=== PATIENT | female | born 1965 | race Caucasian/White ===

== ENCOUNTER 2017-07-15 12:22 | Emergency (ER) | payer OTHER ==
[2017-07-15 12:36] VITALS: RESP 16
--- NOTE | 2017-07-15 13:04 | EDPHY ---
H & P Time Seen by Provider: 07/15/17 12:40 HPI/ROS: CHIEF COMPLAINT: Short of breath and lower chest pain HISTORY OF PRESENT ILLNESS: This 52-year-old woman has history of breast cancer with metastases. She has been on chemotherapy for the last 2 and half years including her last 1 was on July 07. She presents with 3-4 days of increased shortness of breath and pain in both sides of her lower chest and the back which she takes a deep breath. Symptoms are mild to moderate and feels like a "pulling on both sides "of her lower chest when she takes deep breath. She developed a nonproductive cough today, no leg swelling or hemoptysis. REVIEW OF SYSTEMS: Eye: no change in vision ENT: no sore throat Cardiac: HPI no syncope Pulmonary: HPI Abdomen: no vomiting, diarrhea, abdominal pain Musculoskeletal: No fall injury or trauma, no leg swelling. Skin: no rash Neuro: no headache Constitutional: no fever : Slight urinary frequency and dysuria for 1 day A comprehensive 10 point review of systems is otherwise negative aside from elements mentioned in the history of present illness. PAST MEDICAL HISTORY: Breast cancer with metastases Social history: General Appearance: Alert and conversant, cooperative. Eyes: No scleral icterus. ENT, Mouth: Normal mucous membranes. Respiratory: Normal respiratory effort, breath sounds equal, lungs are clear to auscultation. no wheezing or rales. Cardiovascular: Regular rate and rhythm. Gastrointestinal: Abdomen is soft and non tender. No Lal sign. Neurological: Alert and oriented x3. Normally conversant. Face symmetric, normal movement and sensation in all extremities. Skin: Warm and dry, no rashes. Musculoskeletal: No calf tenderness. Psychiatric: Not agitated. Emergency Department course/MDM: Suspicion is moderately high for pulmonary embolism given history of cancer, typical symptoms, tachycardia. Discussed proceeding directly to CT without D- dimer with the patient and consented. 1405: CT per Dr. Hassan shows metastatic nodules, no pulmonary embolism, small effusions, right middle lobe pneumonitis, ribs and vertebral metastases but without vertebral compression fracture. Results discussed with the patient. Her symptoms are better when she eats and drinks. I think this slightly elevated lipase does not clinically represent pancreatitis. Discussed symptomatic treatment and discharge with outpatient follow-up, the patient states she is comfortable with this plan. 1510: Ruddy Ritter, earnestine and f/u discussed, agrees. Urine dip negative, UTI considered unlikely. Smoking Status: Never smoked Constitutional: Initial Vital Signs Temperature (C) 37.1 C 07/15/17 12:29 Heart Rate 100 07/15/17 12:29 Respiratory Rate 16 07/15/17 12:29 Blood Pressure 105/71 07/15/17 12:29 O2 Sat (%) 97 07/15/17 12:29 O2 Delivery Mode Room Air Allergies/Adverse Reactions: peanut Allergy (Verified 11/12/14 15:57) Sulfa (Sulfonamide Antibiotics) Allergy (Verified 11/12/14 15:57) terconazole [From Terazol 3] Allergy (Verified 11/12/14 15:57) tree nut Allergy (Verified 11/12/14 15:57) Home Medications: Medication Instructions Recorded Lucretia Allergy 07/15/17 CeleBREX 07/15/17 Percocet 5/325 (*) 07/15/17 Topamax 07/15/17 Vicodin Es 7.5-300 mg Tablet 07/15/17 oxyCODONE IR 07/15/17 Medical Decision Making - Diagnostics EKG Interpretation: 12-lead EKG interpreted by me; official reading is in trace master. My interpretation is sinus rhythm rate 93 no ischemic changes. Imaging Results: Imaging Impressions Chest/Thorax CTA 07/15/17 13:13 Impression: 1. No definite pulmonary thromboemboli. 2. Multiple osseous metastases including the sternum, manubrium, thoracic spine , and ribs without definite thoracic compression fractures. 3. Minimal bilateral pleural effusions without pneumothorax. 4. Multiple pulmonary metastases and mediastinal metastasis. 5. Probable postradiation pleuroparenchymal fibrosis in the right middle lobe. Recommendation: Consider MRI of the thoracic spine if there is continued clinical concern. Findings discussed with Emergency Department physician, Jesus Ornelas, at 1407 hours, 07/15/2017. Final report concurs with initial preliminary interpretation. Differential Diagnosis: Differential considered including but not limited to pneumonia, pneumothorax, ACS, vertebral compression fracture, pulmonary embolism, pancreatitis, hepatitis , gallbladder disease. - Data Points Laboratory Results: Laboratory Results 07/15/17 12:50 07/15/17 12:50 07/15/17 07/15/17 07/15/17 13:03 12:50 12:50 WBC 13.01 10^3/uL H 10^3/uL (3.80-9.50) RBC 2.46 10^6/uL L 10^6/uL (4.18-5.33) Hgb 8.6 g/dL L g/dL (12.6-16.3) POC Hgb 8.2 gm/dL L gm/dL (12.6-16.3) Hct 26.4 % L % (38.0-47.0) POC Hct 24 % L % (38-47) MCV 107.3 fL H fL (81.5-99.8) MCH 35.0 pg H pg (27.9-34.1) MCHC 32.6 g/dL g/dL (32.4-36.7) RDW 16.0 % H % (11.5-15.2) Plt Count 171 10^3/uL 10^3/uL (150-400) MPV 10.5 fL fL (8.7-11.7) Neut % (Auto) Not Reported Lymph % (Auto) Not Reported [place] % (Auto) Not Reported Eos % (Auto) Not Reported Baso % (Auto) Not Reported Nucleat RBC Rel Count 1.7 % H % (0.0-0.2) Absolute Neuts (auto) Not Reported Absolute Lymphs (auto) Not Reported Absolute Monos (auto) Not Reported Absolute Eos (auto) Not Reported Absolute Basos (auto) Not Reported Absolute Nucleated RBC 0.22 10^3/uL H 10^3/uL (0-0.01) Immature Gran % Not Reported Seg Neutrophils % 51 % % Band Neutrophils % 20 % % Lymphocytes % 14 % % Monocytes % 8 % % Basophils % 3 % % Metamyelocytes % 3 % % Myelocytes % 1 % % Immature Gran # Not Reported Absolute Seg Neuts 6.64 10^/uL H 10^/uL (1.70-6.50) Absolute Band Neuts 2.60 10^3/uL H 10^3/uL (0.00-0.70) Absolute Lymphocytes 1.82 10^3/uL 10^3/uL (1.00-3.00) Absolute Monocytes 1.04 10^3/uL H 10^3/uL (0.30-0.80) Absolute Basophils 0.39 10^3/uL H 10^3/uL (0.02-0.10) Absolute Metamyelocyte 0.39 10^3/mL H 10^3/mL (0.00-0.00) Absolute Myelocytes 0.13 10^3/mL H 10^3/mL (0.00-0.00) Nucleated RBCs 5 /100 WBC H /100 WBC (0-0) Platelet Estimate ADEQUATE (ADEQ) Smear Review By Pending POC Sodium 140 mEq/L mEq/L (134-144) Sodium 139 mEq/L mEq/L (134-144) POC Potassium 3.6 mEq/L mEq/L (3.3-5.0) Potassium 3.6 mEq/L mEq/L (3.5-5.2) POC Chloride 105 mEq/L mEq/L (97-110) Chloride 104 mEq/L mEq/L (97-110) Carbon Dioxide 24 mEq/l mEq/l (22-31) Anion Gap 11 mEq/L mEq/L (8-16) POC BUN 11 mg/dL mg/dL (7-23) BUN 12 mg/dL mg/dL (7-23) Creatinine 0.7 mg/dL mg/dL (0.6-1.0) POC Creatinine 0.7 mg/dL mg/dL (0.6-1.0) Estimated GFR > 60 Glucose 97 mg/dL mg/dL (70-100) POC Glucose 96 mg/dL mg/dL (70-100) Calcium 8.9 mg/dL mg/dL (8.5-10.4) Total Bilirubin 0.4 mg/dL mg/dL (0.1-1.4) Conjugated Bilirubin 0.4 mg/dL mg/dL (0.0-0.5) Unconjugated Bilirubin 0.0 mg/dL mg/dL (0.0-1.1) AST 47 IU/L H IU/L (14-46) ALT 38 IU/L IU/L (9-52) Alkaline Phosphatase 93 IU/L IU/L (38-126) Troponin I < 0.012 ng/mL ng/mL (0.000-0.034) Total Protein 6.3 g/dL g/dL (6.3-8.2) Albumin 3.5 g/dL g/dL (3.5-5.0) Lipase 672 IU/L H IU/L (23-300) Point of Care Test Results: 07/15/17 13:03 POC Sodium 140 POC Potassium 3.6 POC Chloride 105 POC BUN 11 POC Creatinine 0.7 POC Glucose 96 Departure - Departure Disposition: Home, Routine, Self-Care Clinical Impression: lower chest pain posterior Condition: Good Instructions: Chest Pain (ED) Additional Instructions: No blood clot or compression fracture on CT scan. Referrals: Danielle Tucker MD [Primary Care Provider] - As per Instructions Hussein Ritter MD [Medical Doctor] - As per Instructions
[2017-07-15 13:14] LABS: ABSOLUTE NRBC COUNT 0.22 10^3/uL (0-0.01); ADD DIFF? YES; ADD MORPH? YES; ADD SCAN? YES; ATYPICAL LYMPHOCYTE FLAG 0 (0-99); FRAGMENT RBC FLAG 10 (0-99); HEMATOCRIT 26.4 % (38.0-47.0); HEMOGLOBIN 8.6 g/dL (12.6-16.3); LIPEMIA HEMOLYSIS FLAG 80 (0-99); MEAN CELL HEMOGLOBIN CONCENTR. 32.6 g/dL (32.4-36.7); MEAN CELL VOLUME 107.3 fL (81.5-99.8); MEAN PLATELET VOLUME 10.5 fL (8.7-11.7); PLATELET CLUMPS FLAG 0 (0-99); PLATELET COUNT 171 10^3/uL (150-400); RED BLOOD CELL COUNT 2.46 10^6/uL (4.18-5.33)
[2017-07-15] MEDS ORDERED: IOPAMIDOL (ISOVUE 370) 100 ML BTL IV ONE (13:15)
[2017-07-15 13:16] LABS: LEFT SHIFT FLG 300 (0-99); NRBC-AUTO% 1.7 % (0.0-0.2)
[2017-07-15 13:20] LABS: ALANINE AMINOTRANSFERASE 38 IU/L (9-52); ALBUMIN 3.5 g/dL (3.5-5.0); ALKALINE PHOSPHATASE 93 IU/L (38-126); ANION GAP 11 mEq/L (8-16); ASPARTATE AMINOTRANSFERASE 47 IU/L (14-46); BILIRUBIN,TOTAL 0.4 mg/dL (0.1-1.4); BILIRUBIN-CONJUGATED 0.4 mg/dL (0.0-0.5); CALCIUM 8.9 mg/dL (8.5-10.4); CARBON DIOXIDE 24 mEq/l (22-31); CHLORIDE 104 mEq/L (97-110); CREATININE 0.7 mg/dL (0.6-1.0); GLOMERULAR FILTRATION RATE > 60; GLUCOSE 97 mg/dL (70-100); POTASSIUM 3.6 mEq/L (3.5-5.2); SODIUM 139 mEq/L (134-144); TOTAL PROTEIN 6.3 g/dL (6.3-8.2)
[2017-07-15 13:31] LABS: TROPONIN I < 0.012 ng/mL (0.000-0.034)
--- NOTE | 2017-07-15 14:06 | CPEKG ---
Heart Rate: 93 RR Interval: 645 P-R Interval: 172 QRSD Interval: 72 QT Interval: 384 QTC Interval: 478 P [place]: 78 QRS [place]: 65 T Wave [place]: 45 EKG Severity - NORMAL ECG - EKG Impression: SINUS RHYTHM Electronically Signed By: Jesus Ornelas 15-Jul-2017 15:04:20
[2017-07-15 14:56] LABS: PLATELET ESTIMATE ADEQUATE (ADEQ)
[2017-07-15 15:15] VITALS: BP 117/68; PULSE 94; TEMP 98.4; O2SAT 95
== END 2017-07-15 15:16 | disposition home or self-care (01) ==
DX: R07.9 Chest pain, unspecified (principal); Z85.3 Personal history of malignant neoplasm of breast; Z91.010 Allergy to peanuts
CPT/HCPCS: 82947-QW; Q9967

== ENCOUNTER 2017-07-28 10:17 | Outpatient (CLI) | payer OTHER ==
[2017-07-28] MEDS ORDERED: ACETAMINOPHEN 325 MG TAB PO ONE (11:45)
[2017-07-28] MEDS ORDERED: diphenhydrAMINE 25 MG CAP PO ONE (11:45)
== END 2017-07-28 15:00 | disposition home or self-care (01) ==
LOC: FOBOP 10:17
PROVIDERS: ATTEND Internal Medicine Hematology & Oncology
PROC: 30243N1 Transfusion of Nonautologous Red Blood Cells into Central Vein, Percutaneous Approach (ICD-10-PCS; principal; 2017-07-28)
DX: C50.919 Malignant neoplasm of unspecified site of unspecified female breast (principal)
CPT/HCPCS: 36430; P9016; J1642

== ENCOUNTER → 2017-07-29 | Outpatient (CLI) | payer OTHER ==
[~2017-07-29] MED LIST: LIDOCAINE 1% 300 MG/30 ML SDV ONE; THROMBIN (BOVINE) 5,000 UNIT VIAL TP ONE
== END ==
LOC: FIMAGING 09:06
PROVIDERS: ATTEND Internal Medicine Hematology & Oncology
PROC: 0HBT3ZX Excision of Right Breast, Percutaneous Approach, Diagnostic (ICD-10-PCS; principal; 2017-07-29)
DX: C50.411 Malignant neoplasm of upper-outer quadrant of right female breast (principal)

== ENCOUNTER → 2017-08-15 | Outpatient (CLI) | payer OTHER | LOC: FIMAGING 17:12 | PROVIDERS: ATTEND Nurse Practitioner | DX: C79.51 Secondary malignant neoplasm of bone (principal); C50.411 Malignant neoplasm of upper-outer quadrant of right female breast; M51.37 Other intervertebral disc degeneration, lumbosacral region; M46.97 Unspecified inflammatory spondylopathy, lumbosacral region; M48.07 Spinal stenosis, lumbosacral region; M46.96 Unspecified inflammatory spondylopathy, lumbar region; M48.061 Spinal stenosis, lumbar region without neurogenic claudication; D64.81 Anemia due to antineoplastic chemotherapy ==

== ENCOUNTER 2017-08-17 10:44 | Outpatient (CLI) | payer OTHER ==
[2017-08-17] MEDS ORDERED: FUROSEMIDE 20 MG/2 ML VIAL IVP ONE (11:30)
== END 2017-08-17 16:18 | disposition home or self-care (01) ==
LOC: FOBOP 10:44
PROVIDERS: ATTEND Internal Medicine Hematology & Oncology
PROC: 30233N1 Transfusion of Nonautologous Red Blood Cells into Peripheral Vein, Percutaneous Approach (ICD-10-PCS; principal; 2017-08-17)
DX: D64.81 Anemia due to antineoplastic chemotherapy (principal); C50.919 Malignant neoplasm of unspecified site of unspecified female breast; Z88.2 Allergy status to sulfonamides
CPT/HCPCS: 36430; P9016; J1940

== ENCOUNTER → 2017-08-20 | Outpatient (CLI) | payer OTHER ==
[~2017-08-20] MED LIST changes: +GADOBUTROL 10 ML VIAL IVP ONE; -LIDOCAINE 1% 300 MG/30 ML SDV ONE; -THROMBIN (BOVINE) 5,000 UNIT VIAL TP ONE
== END ==
LOC: FIMAGING 14:57
PROVIDERS: ATTEND Nurse Practitioner
DX: G93.9 Disorder of brain, unspecified (principal); G95.19 Other vascular myelopathies; R93.7 Abnormal findings on diagnostic imaging of other parts of musculoskeletal system; H70.92 Unspecified mastoiditis, left ear; J90 Pleural effusion, not elsewhere classified; C50.411 Malignant neoplasm of upper-outer quadrant of right female breast
CPT/HCPCS: A9585

== ENCOUNTER 2017-09-08 13:51 | Inpatient (IN) | payer OTHER ==
[2017-09-08] MEDS ORDERED: NS 500 ML IV ONE (14:04)
[2017-09-08] MEDS ORDERED: IPRATROPIUM/ALBUTEROL 3 ML DEYVIAL IH ONE (14:04)
--- NOTE | 2017-09-08 14:10 | EDPHY ---
H & P Stated Complaint: SOB x 2 days, cpap Time Seen by Provider: 09/08/17 13:57 HPI/ROS: CHIEF COMPLAINT: Shortness of breath HISTORY OF PRESENT ILLNESS: Patient is a 52-year-old female with a history of breast cancer with metastasis to lung, brain and spine. She is brought to the emergency department by EMS complaining of shortness of breath. When EMS arrived to her house she was satting 80%. They placed on a non-rebreather and she was satting 85%. They placed her on CPAP and she sats 93%. states over the last 3 days she has developed increasing shortness of breath gradually. No chest pain. No fever or cough. 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 No leg pain or swelling. She was seen here 2 months ago and had a CT angiogram at that time that showed metastasis, small effusions but no PE. REVIEW OF SYSTEMS: Constitutional: denies: chills, fever, recent illness, recent injury EENTM: denies: blurred vision, double vision, nose congestion Respiratory: See HPI Cardiac: denies: chest pain, irregular heart rate, lightheadedness, palpitations Gastrointestinal/Abdominal: denies: abdominal pain, diarrhea, nausea, vomiting, blood streaked stools Genitourinary: denies: dysuria, frequency, hematuria, pain Musculoskeletal: denies: joint pain, muscle pain Skin: denies: lesions, rash, jaundice, bruising Neurological: denies: headache, numbness, paresthesia, tingling, dizziness, weakness Hematologic/Lymphatic: denies: blood clots, easy bleeding, easy bruising Immunologic/allergic: denies: HIV/AIDS, transplant EXAM: GENERAL: Well-appearing, well-nourished and in no acute distress. HEAD: Atraumatic, normocephalic. EYES: Pupils equal round and reactive to light, extraocular movements intact, sclera anicteric, conjunctiva are normal. ENT: TMs normal, nares patent, oropharynx clear without exudates. Moist mucous membranes. NECK: Normal range of motion, supple without lymphadenopathy or JVD. LUNGS: Coarse breath sounds throughout, no wheezing HEART: Regular rate and rhythm without murmurs, rubs or gallops. ABDOMEN: Soft, nontender, normoactive bowel sounds. No guarding, no rebound. No masses appreciated. BACK: No CVA tenderness, no spinal tenderness, step-offs or deformities EXTREMITIES: Normal range of motion, no pitting or edema. No clubbing or cyanosis. NEUROLOGICAL: Cranial nerves II through XII grossly intact. Normal speech, normal gait. 5/5 strength, normal movement in all extremities, normal sensation PSYCH: Normal mood, normal affect. SKIN: Warm, dry, normal turgor, no visible rashes or lesions. Source: Patient Exam Limitations: No limitations - Personal History Current Tetanus/Diphtheria Vaccine: Unsure Current Tetanus Diphtheria and Acellular Pertussis (TDAP): Unsure - Medical/Surgical History Hx Asthma: No Hx Chronic Respiratory Disease: No Hx Diabetes: No Hx Cardiac Disease: No Hx Renal Disease: No Hx Cirrhosis: No Hx Alcoholism: No Hx HIV/AIDS: No Hx Splenectomy or Spleen Trauma: No Other PMH: BREAST CA WITH METS TO BONE - Family History Significant Family History: No pertinent family hx - Social History Smoking Status: Never smoked Alcohol Use: Sober Drug Use: None Constitutional: Initial Vital Signs Temperature (C) 36.7 C 09/08/17 14:00 Heart Rate 129 H 09/08/17 14:00 Respiratory Rate 17 09/08/17 14:00 Blood Pressure 132/82 H 09/08/17 14:00 O2 Sat (%) 94 09/08/17 14:00 O2 Delivery Mode Oxymizer O2 (L/minute) 10 Allergies/Adverse Reactions: bacitracin Allergy (Verified 08/17/17 11:15) peanut Allergy (Verified 11/12/14 15:57) Sulfa (Sulfonamide Antibiotics) Allergy (Verified 11/12/14 15:57) terconazole [From Terazol 3] Allergy (Verified 11/12/14 15:57) tree nut Allergy (Verified 11/12/14 15:57) Home Medications: Medication Instructions Recorded Albuterol [Ventolin Hfa Inhaler] 2 puffs IH Q6H PRN 09/08/17 Dexamethasone [Decadron 4 MG (*)] 4 mg PO BID 09/08/17 Gabapentin [Neurontin 100 MG (*)] 300 mg PO HS 09/08/17 LORazepam [Ativan (*)] 0.5 mg PO HS PRN 09/08/17 Loratadine [Claritin] 10 mg PO HS 09/08/17 fentaNYL [Duragesic 100 MCG Patch 100 mcg TD Q72H 09/08/17 (*)] oxyCODONE HCL [Oxycontin] 60 mg PO Q8H 09/08/17 Medical Decision Making - Diagnostics EKG Interpretation: An EKG obtained and was read and documented in trace view. Please see trace view for full reading and report. Sinus tachycardia, similar to previous Imaging: Discussed imaging studies w/ hogshead mat assembler Radiologist ED Course/Re-evaluation: 2:55 p.m. I discussed the case with Dr. Clarke who will admit to the medical service. He agrees with [facility]. The patient meets criteria for severe sepsis but not septic shock. Her blood pressure is stable. Differential Diagnosis: Partial list of the Differential diagnosis considered include but were not limited to; pneumonia, PE, reactive airway disease, pleural effusion and although unlikely based on the history and physical exam, I also considered acute coronary disease, dissection. Critical Care Time: Critical care time spent by me, Dr. Babcock exclusive with this patient was 35 minutes, exclusive of the PA time exclusive of procedures. The organ system that was at risk was pulmonary and I gave IV fluids, antibiotics, consultation and admission to prevent worsening of the patient's condition - Data Points Laboratory Results: Laboratory Results 09/08/17 14:20 09/08/17 14:20 Medications Given: Acetaminophen (Tylenol) 650 mg PO Q4HRS PRN PRN Reason: Pain, Mild/Fever, Can Take PO Stop: 03/07/18 16:02 Last Admin: 09/08/17 19:48 Dose: 650 mg Albuterol/Ipratropium (Duoneb) 3 ml IH QID BRENDA Stop: 03/07/18 20:59 Last Admin: 09/09/17 11:54 Dose: Not Given Cetirizine HCl (Zyrtec) 10 mg PO HS BRENDA Stop: 03/07/18 20:59 Last Admin: 09/08/17 21:00 Dose: 10 mg Dexamethasone (Decadron) 4 mg PO TID BRENDA Stop: 03/07/18 21:59 Last Admin: 09/09/17 08:08 Dose: 4 mg Enoxaparin Sodium (Lovenox) 40 mg SC DAILY BRENDA Stop: 03/08/18 08:59 Last Admin: 09/09/17 07:01 Dose: Not Given Gabapentin (Neurontin) 300 mg PO HS BRENDA Stop: 03/07/18 20:59 Last Admin: 09/08/17 21:25 Dose: 300 mg Guaifenesin (Mucinex) 1,200 mg PO BID BRENDA Stop: 03/07/18 20:59 Last Admin: 09/09/17 08:08 Dose: 1,200 mg Sodium Chloride (Ns) 1,000 mls @ 125 mls/hr IV CONT BRENDA Stop: 03/07/18 16:14 Last Admin: 09/09/17 02:00 Dose: 1,000 mls Piperacillin/Tazobactam/Dextrose (Zosyn (Premix)) 100 mls @ 200 mls/hr IV Q6HRS BRENDA PRN Reason: Protocol Stop: 10/08/17 17:59 Last Admin: 09/09/17 12:19 Dose: 100 mls Oxycodone HCl (Oxycontin) 60 mg PO Q8H BRENDA Stop: 09/18/17 15:59 Last Admin: 09/09/17 08:08 Dose: 60 mg Oxycodone HCl (Oxycodone Ir) 15 mg PO Q4HRS PRN PRN Reason: Pain, Severe Able to Take PO Stop: 09/18/17 16:56 Last Admin: 09/08/17 17:08 Dose: 15 mg Discontinued Medications Albuterol/Ipratropium (Duoneb) 3 ml IH EDNOW ONE Stop: 09/08/17 14:05 Last Admin: 09/08/17 14:45 Dose: 3 ml Sodium Chloride (Ns) 500 mls @ 1,000 mls/hr IV EDNOW ONE PRN Reason: Protocol Stop: 09/08/17 14:33 Last Admin: 09/08/17 14:44 Dose: 500 mls Levofloxacin/Dextrose (Levaquin 750 Mg (Premix)) 150 mls @ 100 mls/hr IV EDNOW ONE PRN Reason: Protocol Stop: 09/08/17 16:20 Last Admin: 09/08/17 14:56 Dose: 150 mls Sodium Chloride (Ns) 1,700 mls @ 3,400 mls/hr 30 ml/kg infuse over 30 min ( 1700 ml) IV EDNOW ONE PRN Reason: Protocol Stop: 09/08/17 15:20 Last Admin: 09/08/17 14:56 Dose: 1,700 mls Azithromycin 500 mg/ Dextrose 255 mls @ 255 mls/hr IV DAILY BRENDA PRN Reason: Protocol Stop: 10/09/17 08:59 Last Admin: 09/09/17 09:12 Dose: 255 mls Departure - Departure Disposition: [facility] Inpatient Acute Clinical Impression: Pleural effusion Pneumonia Qualifiers: Pneumonia type: due to unspecified organism Laterality: right Lung location: lower lobe of lung Qualified Code(s): J18.1 - Lobar pneumonia, unspecified organism Condition: Critical
--- NOTE | 2017-09-08 14:22 | CPEKG ---
Heart Rate: 127 RR Interval: 472 P-R Interval: 412 QRSD Interval: 60 QT Interval: 304 QTC Interval: 442 P [place]: 0 QRS [place]: 89 T Wave [place]: 13 EKG Severity - ABNORMAL ECG - EKG Impression: SINUS TACHYCARDIA EKG Impression: FIRST DEGREE AV BLOCK EKG Impression: ANTHONY, CONSIDER BIATRIAL ABNORMALITIES Electronically Signed By: Martin Babcock 08-Sep-2017 14:29:53
[2017-09-08 14:36] LABS: % IMMATURE GRANULYOCYTES 0.7 % (0.0-1.1); ABSOLUTE IMMATURE GRANULOCYTES 0.04 10^3/uL (0.00-0.10); ADD DIFF? NO; ADD SCAN? YES; ATYPICAL LYMPHOCYTE FLAG 20 (0-99); FRAGMENT RBC FLAG 80 (0-99); HEMATOCRIT 36.4 % (38.0-47.0); HEMOGLOBIN 11.7 g/dL (12.6-16.3); LIPEMIA HEMOLYSIS FLAG 80 (0-99); MEAN CELL HEMOGLOBIN 30.5 pg (27.9-34.1); MEAN CELL HEMOGLOBIN CONCENTR. 32.1 g/dL (32.4-36.7); MEAN PLATELET VOLUME 10.5 fL (8.7-11.7); PLATELET CLUMPS FLAG 10 (0-99); PLATELET COUNT 147 10^3/uL (150-400); RED BLOOD CELL COUNT 3.83 10^6/uL (4.18-5.33); RED CELL DISTRIBUTION WIDTH 18.9 % (11.5-15.2)
[2017-09-08 14:37] LABS: ADD MORPH? NO; LEFT SHIFT FLG 170 (0-99); NRBC-AUTO% 1.7 % (0.0-0.2)
[2017-09-08 14:44] LABS: INR 1.09 (0.83-1.16)
[2017-09-08 14:45] LABS: APTT 46.9 SEC (23.0-38.0)
[2017-09-08] MEDS ORDERED: NS 1,700 ML IV ONE (14:51)
[2017-09-08 15:03] LABS: CALCIUM 8.2 mg/dL (8.5-10.4); CARBON DIOXIDE 23 mEq/l (22-31); CHLORIDE 95 mEq/L (97-110); CREATININE 0.8 mg/dL (0.6-1.0); GLOMERULAR FILTRATION RATE > 60; GLUCOSE 137 mg/dL (70-100); SODIUM 135 mEq/L (134-144)
[2017-09-08] MEDS ORDERED: IOPAMIDOL (ISOVUE 370) 100 ML BTL IV ONE (15:06)
[2017-09-08 15:07] LABS: ANION GAP 17 mEq/L (8-16); POTASSIUM 4.9 mEq/L (3.5-5.2)
[2017-09-08 15:26] LABS: SCAN POSITIVE
[2017-09-08 15:27] LABS: LACGHOST ORDER
[2017-09-08 15:31] LABS: MACROCYTES 1+; MICROCYTES 1+; PLATELET ESTIMATE DECREASED (ADEQ); POLYCHROMASIA 1+
[2017-09-08 15:51] LABS: TROPONIN I 0.035 ng/mL (0.000-0.034)
[2017-09-08] MEDS ORDERED: ALBUTEROL 200 PUFFS/18 GM MDI IH PRN (16:00)
[2017-09-08] MEDS ORDERED: ONDANSETRON DISINTEGRATING 4 MG TAB PO PRN (16:03)
[2017-09-08] MEDS ORDERED: ONDANSETRON 4 MG/2 ML VIAL IVP PRN (16:03)
[2017-09-08] MEDS ORDERED: ACETAMINOPHEN 325 MG TAB PO PRN (16:03)
[2017-09-08] MEDS ORDERED: NS 1,000 ML IV SCH (16:15)
[2017-09-08] MEDS ORDERED: oxyCODONE IR 15 MG TAB PO PRN (16:57)
--- NOTE | 2017-09-08 17:02 | GHP ---
[f rep st] HISTORY AND PHYSICAL DATE OF ADMISSION: 09/08/2017 CHIEF COMPLAINT: Shortness of breath. HISTORY OF PRESENT ILLNESS: This is a 52-year-old female with metastatic breast cancer who received chemotherapy 2 weeks ago with Gemzar and Taxol, presents with shortness of breath. She was brought i n by her . She has been coughing, had difficulty producing sputum. She has not had any fever s at home. She does feel somewhat short of breath. She is not having any chest pain. PAST MEDICAL/SURGICAL HISTORY: 1. 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 2. Right lymph node dissection. 3. Followed by Dr. Ritter. MEDICATIONS: Please see medication reconciliation. ALLERGIES: Bacitracin, peanuts, sulfa, terconazole, tree nut. FAMILY HISTORY: Reviewed and noncontributory. SOCIAL HISTORY: She is accompanied by her daughter as well as her . REVIEW OF SYSTEMS: A 10-point review of systems is conducted and is negative except per HPI. PHYSICAL EXAM: VITAL SIGNS: Blood pressure 124/64, heart rate 112, respiration rate 24, saturating 94% on 10 L Oxymizer, temperature 36.7. GENERAL: The patient is a very pleasant female who appears somewhat dyspneic. HEENT: Shows her to be normocephalic, atraumatic. CARDIOVASCULAR: Shows regula r rate and rhythm. No murmurs, rubs, or gallops. PULMONARY: Shows her to have diffuse rhonchi bila terally. ABDOMEN: Soft, nontender, nondistended. SKIN: Shows no rash. : No Sellers. NEUROLOGIC : Shows her to be alert and oriented x3. She is mildly confused. Her answers some question s for her. PSYCHIATRIC: Shows her to have normal mood and affect. LABS: White count is 5.9, hemoglobin 11, platelets are 147. INR is 1.0. Lactate is 3.0. Troponin 0.035. Bicarb 23, anion gap is 17. DATA: 1. I discussed this with Dr. Babcock. 2. I personally viewed and interpreted her chest x-ray. This shows a right lower lobe infiltrate. This is read as a new infiltrate. 3. EKG, which I personally viewed and interpreted, shows sinus tachycardia. There was nothing acute ly ischemic. IMPRESSION AND PLAN: This is a 52-year-old female with metastatic breast cancer, received chemothera py 2 weeks ago, presents with pneumonia. 1. Sepsis due to pneumonia: She has received appropriate fluid bolus. Repeat lactate is pending. She will be placed on broad-spectrum antibiotics with Zosyn and azithromycin. We will triage her to the step-down unit given the degree of respiratory failure. We will send sputum culture, respiratory viral panel. CT scan is pending. 2. Acute respiratory failure due to the above: Give her nebulizers, broad-spectrum antibiotics, tri age her to the step-down unit. Write her for Mucinex. We will follow very closely. 3. Breast cancer with leptomeningeal disease: It sounds as though they recently transitioned to [facility]. She follows with Dr. Ritter. I will ask my covering colleague to let Oncology know of her admission tomorrow. 4. Code status: She and her said that they have a Medical Orders for Scope of Treatment for m, which states that she would not want to be intubated or resuscitated. I think that this is approp riate given her underlying disease. 5. Venous thromboembolism risk: Moderate, I will give her Lovenox. /[id number]/MODL
--- NOTE | 2017-09-08 17:04 | ASMTCMCOM ---
CM Note CM Note Notes: Patient admitted through the ER on 09/08/17. Received VM from Kelly at [facility] . Patient is current with PC through [facility] and they are available as needed. [facility]: . I have contacted Kelly and informed her of patient's admission to [facility] to follow with D/C planning prn Date Signed: 09/08/2017 05:03 PM Electronically Signed By:Katy Sanchez RN
[2017-09-08] MEDS: oxyCODONE CR 30 MG TAB PO SCH (17:08)
[2017-09-08] MEDS: PIPERACILLIN/TAZO 4.5 GM/DEX 100 ML IV SCH (17:11)
[2017-09-08] MEDS ORDERED: DEXAMETHASONE 4 MG TAB PO SCH (21:00)
[2017-09-08] MEDS: CETIRIZINE 10 MG TAB PO SCH (21:00)
[2017-09-08] MEDS: DEXAMETHASONE 4 MG TAB PO SCH (21:25)
[2017-09-08] MEDS: guaiFENesin 600 MG TAB.ER PO SCH (21:25)
[2017-09-08] MEDS: GABAPENTIN 300 MG CAP PO SCH (21:25)
[2017-09-08] MEDS: IPRATROPIUM/ALBUTEROL 3 ML DEYVIAL IH SCH (21:42)
[2017-09-09] MEDS: IPRATROPIUM/ALBUTEROL 3 ML DEYVIAL IH SCH ×4 (05:48→21:34)
[2017-09-09] MEDS: PIPERACILLIN/TAZO 4.5 GM/DEX 100 ML IV SCH ×4 (05:57→17:52)
[2017-09-09 06:20] LABS: % IMMATURE GRANULYOCYTES 2.3 % (0.0-1.1); ABSOLUTE IMMATURE GRANULOCYTES 0.15 10^3/uL (0.00-0.10); ABSOLUTE NRBC COUNT 0.07 10^3/uL (0-0.01); ADD DIFF? NO; ADD MORPH? YES; ADD SCAN? YES; ATYPICAL LYMPHOCYTE FLAG 20 (0-99); FRAGMENT RBC FLAG 20 (0-99); HEMATOCRIT 30.9 % (38.0-47.0); LIPEMIA HEMOLYSIS FLAG 80 (0-99); MEAN CELL HEMOGLOBIN 31.3 pg (27.9-34.1); MEAN CELL HEMOGLOBIN CONCENTR. 32.4 g/dL (32.4-36.7); MEAN CELL VOLUME 96.6 fL (81.5-99.8); MEAN PLATELET VOLUME 10.9 fL (8.7-11.7); PLATELET CLUMPS FLAG 0 (0-99); PLATELET COUNT 102 10^3/uL (150-400)
[2017-09-09 06:27] LABS: LEFT SHIFT FLG 200 (0-99); NRBC-AUTO% 1.1 % (0.0-0.2)
--- NOTE | 2017-09-09 06:42 | PDMN ---
Medical Necessity Medical necessity: M160 sepsis and other febrile illness, M282 PNA- RLL infiltrate with SOB, acute resp. failure , in pt with Dg of Br. Ca, with leptomeningeal disease. receiving chemo 2 weeks ago, pt will req IV abx,fluids , O2,( 10L) , nebs further monitoring
[2017-09-09 06:50] LABS: SCAN POSITIVE
[2017-09-09 06:57] LABS: MACROCYTES 1+; MICROCYTES 1+; PLATELET ESTIMATE DECREASED (ADEQ); POLYCHROMASIA 1+
[2017-09-09] MEDS: ENOXAPARIN 40 MG/0.4 ML SYR SC SCH (07:01)
[2017-09-09 07:04] LABS: ALANINE AMINOTRANSFERASE 46 IU/L (9-52); ALBUMIN 2.4 g/dL (3.5-5.0); ALKALINE PHOSPHATASE 98 IU/L (38-126); ANION GAP 9 mEq/L (8-16); ASPARTATE AMINOTRANSFERASE 48 IU/L (14-46); BILIRUBIN,TOTAL 0.4 mg/dL (0.1-1.4); CARBON DIOXIDE 27 mEq/l (22-31); CHLORIDE 103 mEq/L (97-110); CREATININE 0.6 mg/dL (0.6-1.0); GLOMERULAR FILTRATION RATE > 60; GLUCOSE 139 mg/dL (70-100); POTASSIUM 4.5 mEq/L (3.5-5.2); SODIUM 139 mEq/L (134-144); TOTAL PROTEIN 5.2 g/dL (6.3-8.2)
[2017-09-09 07:05] LABS: CALCIUM 7.6 mg/dL (8.5-10.4)
[2017-09-09] MEDS: oxyCODONE CR 30 MG TAB PO SCH ×3 (08:08→16:13)
[2017-09-09] MEDS: guaiFENesin 600 MG TAB.ER PO SCH ×2 (08:08→21:17)
[2017-09-09] MEDS: DEXAMETHASONE 4 MG TAB PO SCH ×3 (08:08→21:17)
--- NOTE | 2017-09-09 08:57 | HOSPPROG ---
Hospitalist Progress Note Assessment/Plan: DIAGNOSES: -acute sepsis with metabolic acidosis -acute hypoxemic respiratory failure -acute community aquired pneumonia -pleural effusion, ?parapneumonic vs empyema vs other -deconditioning with gait instability and impaired ambulation -Breast cancer with leptomeningeal disease, ? palliative care -elevated troponin likely demand ischemia from sepsis -anemia and thrombocytopenia due to cancer and acute illness Reviewed condition and plans today with Dr. 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, my review: Sinus Exam: alert oriented looks weak and tired skin warm dry color ok resps still mildly labored lungs severely rhonchorous BSs diffusely heart regular abd soft nondistended nontender, bowel sounds present limbs warm, no edema iv site ok Lab data: Resolution of metabolic acidosis Anemia worse with hemoglobin 10.0 Renal function stable Cultures another infectious studies negative so far Objective: Vital Signs Temp Pulse Resp BP Pulse Ox 37.1 C 103 H 32 H 142/87 H 94 09/09/17 00:00 09/09/17 06:00 09/09/17 06:00 09/09/17 06:00 09/09/17 06:00 Laboratory Results 09/09/17 05:40 09/09/17 05:40 09/08/17 09/09/17 09/10/17 06:59 06:59 06:59 Intake Total 1075 Output Total 1800 Balance -725 PT 14.0 SEC (12.0-15.0) 09/08/17 14:20 INR 1.09 (0.83-1.16) 09/08/17 14:20 ICD10 Worksheet Patient Problems: Problems Problem Status Onset Pleural effusion Acute Pneumonia Acute
[2017-09-09] MEDS ORDERED: AZITHROMYCIN IV 500 MG in D5W 250 ML IV SCH (09:00)
[2017-09-09] MEDS ORDERED: LIDOCAINE 1% 300 MG/30 ML SDV ONE (10:35)
--- NOTE | 2017-09-09 17:01 | ASMTCMCOM ---
CM Note CM Note Notes: Spoke with Rupal with [facility] to give her an update on patient's condition. She states patient is still palliatvie status because she is working with Dr. Meredith on any other options of treatment for the breast cancer. Rupal would like to hear from us Tuesday regarding patient's progress. Rupal's number is [phone]. CM will follow to coordinate d/c with [facility]. Date Signed: 09/09/2017 05:01 PM Electronically Signed By:Zoë Rodriguez LCSW
[2017-09-09] MEDS: LORazepam 0.5 MG TAB PO PRN ×2 (17:52→21:43)
[2017-09-09] MEDS: GABAPENTIN 300 MG CAP PO SCH (21:17)
[2017-09-09] MEDS: CETIRIZINE 10 MG TAB PO SCH (21:17)
[2017-09-10] MEDS: PIPERACILLIN/TAZO 4.5 GM/DEX 100 ML IV SCH ×5 (00:21→23:04)
[2017-09-10] MEDS: oxyCODONE CR 30 MG TAB PO SCH ×4 (00:21→23:04)
[2017-09-10] MEDS: IPRATROPIUM/ALBUTEROL 3 ML DEYVIAL IH SCH ×4 (05:47→22:58)
[2017-09-10] MEDS: AZITHROMYCIN 250 MG TAB PO SCH (08:50)
[2017-09-10] MEDS: guaiFENesin 600 MG TAB.ER PO SCH ×2 (08:50→20:48)
[2017-09-10] MEDS: ENOXAPARIN 40 MG/0.4 ML SYR SC SCH (08:50)
[2017-09-10] MEDS: DEXAMETHASONE 4 MG TAB PO SCH ×3 (08:50→20:48)
[2017-09-10] MEDS ORDERED: fentaNYL 100 MCG PATCH TD SCH (09:00)
--- NOTE | 2017-09-10 09:01 | HOSPPROG ---
Hospitalist Progress Note Assessment/Plan: DIAGNOSES: -acute sepsis with metabolic acidosis -acute hypoxemic respiratory failure -acute community aquired pneumonia -pleural effusion, ?parapneumonic vs empyema vs other -deconditioning with gait instability and impaired ambulation -Breast cancer with leptomeningeal disease, ? palliative care -elevated troponin likely demand ischemia from sepsis -anemia and thrombocytopenia due to cancer and acute illness PLANS: -continue empiric abx, follow cultures -physical occupational therapy -continue current respiratory care -home on likely po abx once safe w ambulation and other issues -likely will need home O2 -should have CXR to assess for possible recurrent effusion as this could be treated palliatively to reduce sob SUBJECTIVE: feeling better overall less sob, though still w some dyspnea off O2 in bed has not ambulated other than 8 feet to commode OBJECTIVE Vitals reviewed: Still tachycardic though she says this is chronic baseline pulse; recorded RRs normal but now off O2 she is at 25; blood pressures and temperature is normal [employer], my review: Sinus Exam: alert oriented still looks weak and tired but more relaxed today skin warm dry color ok resps still mildly labored lungs now much clearer BS than yest heart regular abd soft nondistended nontender, bowel sounds present limbs warm, no edema iv site ok CXR, my reading if image: near complete absence of pleural fluid, no pneumtx, still some lower R lung infiltrate cultures remain negative so far Objective: Vital Signs Temp Pulse Resp BP Pulse Ox 36.7 C 104 H 20 126/88 H 100 09/10/17 07:35 09/10/17 07:35 09/10/17 07:35 09/10/17 07:35 09/10/17 07:35 Microbiology 09/09/17 08:20 Respiratory Panel (PCR) - Final Nasal, Sinus - Swab No Organism Detected Laboratory Results 09/09/17 05:40 09/09/17 05:40 09/09/17 09/10/17 09/11/17 06:59 06:59 06:59 Intake Total 1075 1300 Output Total 1800 525 Balance -725 775 PT 14.0 SEC (12.0-15.0) 09/08/17 14:20 INR 1.09 (0.83-1.16) 09/08/17 14:20 - Time Spent With Patient Time Spent with Patient: greater than 35 minutes Time Spent with Patient: Greater than 35 minutes spent on this patients care, greater than 50% of time spent counseling, educating, and coordinating care regarding the above mentioned plan. ICD10 Worksheet Patient Problems: Problems Problem Status Onset Pleural effusion Acute Pneumonia Acute
[2017-09-10] MEDS: CETIRIZINE 10 MG TAB PO SCH (20:48)
[2017-09-10] MEDS: GABAPENTIN 300 MG CAP PO SCH (20:48)
[2017-09-10] MEDS: LORazepam 0.5 MG TAB PO PRN (20:58)
[2017-09-11] MEDS: PIPERACILLIN/TAZO 4.5 GM/DEX 100 ML IV SCH ×3 (05:05→17:25)
[2017-09-11] MEDS: IPRATROPIUM/ALBUTEROL 3 ML DEYVIAL IH SCH ×4 (05:20→21:11)
[2017-09-11] MEDS: ENOXAPARIN 40 MG/0.4 ML SYR SC SCH (08:33)
[2017-09-11] MEDS: oxyCODONE CR 30 MG TAB PO SCH ×2 (08:33→16:47)
[2017-09-11] MEDS: DEXAMETHASONE 4 MG TAB PO SCH ×3 (08:33→20:38)
[2017-09-11] MEDS: AZITHROMYCIN 250 MG TAB PO SCH (08:33)
[2017-09-11] MEDS: guaiFENesin 600 MG TAB.ER PO SCH (08:34)
[2017-09-11] MEDS ORDERED: DULoxetine 20 MG CAP PO SCH (12:45)
--- NOTE | 2017-09-11 12:59 | HOSPPROG ---
Hospitalist Progress Note Assessment/Plan: DIAGNOSES: -acute sepsis with metabolic acidosis, resolved -acute hypoxemic respiratory failure, hypoxemia and exertional dyspnea persist and are fairly debilitating though better than at the time of admission -acute community aquired pneumonia -pleural effusion, ?parapneumonic vs empyema vs malignant, status post thoracentesis 1.5 L on September 09 -there is some reaccumulation of fluid after thoracentesis done 2 days ago. I suspect this fluid is probably malignant but the original tapped and but none without signs fluid being sent to the lab so I do not have specific data from that. As she remains somewhat debilitated by dyspnea it may be helpful to have further thoracentesis tomorrow -deconditioning with gait instability and impaired ambulation -Breast cancer with leptomeningeal disease, she is current on palliative care, wishes no specific treatment for her breast cancer, but does want ongoing treatments for other medical conditions including antibiotics -elevated troponin likely demand ischemia from sepsis; further workup not indicated -anemia and thrombocytopenia due to cancer and acute illness PLANS: -consider placement of a PleurX catheter tomorrow, will review with Oncology -continue empiric abx, follow cultures -will change her OxyContin from 60 mg three times daily to 40, 60, 60, and see if this allows her to feel more alert during the day; we will continue her current doses of fentanyl patch and rescue pain medicine -will try 20 mg capsules of Cymbalta to see if she can swallow these easily enough. Have ordered 60 mg at HS however if she tolerates swallowing the capsules and this is not enough for anxiety over time she may need to try and go back to her 120 mg HS dose which she had taken for years -physical occupational therapy -continue current respiratory care -likely will need home O2 SUBJECTIVE: Today she complains of ongoing severe fatigue and weakness, and remarkable dyspnea on exertion. Quite difficult for her to get to the commode and back. She complains today of feeling more groggy than she wishes to from her narcotic though she has no pain at all on her current regimen. She wonders if there is a way to change her narcotic regimen to allow her to be more awake but she does not want a significant increase in pain and worry somewhat about that. Notably I have not seen her overtly sedated during my visit with her in the hospital here so far and she does have both fentanyl patch and OxyContin. Additionally she mentions feeling quite anxious. She recently stopped taking Cymbalta which was 120 mg at bedtime as she was unable to swallow the 60 mg capsules with her tumor. She thinks that the Cymbalta over the many years she took it was very effective at helping control her anxiety. OBJECTIVE Vitals reviewed: Her current tachycardia is chronic baseline pulse rate for many years; vitals stable and otherwise without fever Exam: alert oriented still looks weak and tired skin warm dry color ok resps still mildly labored lungs slight rhonchi but also now some decreased breath sounds at the right base suggesting possibility of recurrence effusion heart regular abd soft nondistended nontender, bowel sounds present limbs warm, no edema iv site ok CXR, my reading of image: There is reaccumulation of pleural fluid in the right chest cavity. There is also an increasingly large density in the right upper lobe. It is hard to tell if this is tumor, or possibly an infiltrate. cultures remain negative so far Objective: Vital Signs Temp Pulse Resp BP Pulse Ox 37.0 C 118 H 18 140/94 H 95 09/11/17 11:44 09/11/17 11:44 09/11/17 11:44 09/11/17 11:44 09/11/17 11:44 Laboratory Results 09/09/17 05:40 09/09/17 05:40 09/10/17 09/11/17 09/12/17 06:59 06:59 06:59 Intake Total 1300 1200 Output Total 525 Balance 775 1200 PT 14.0 SEC (12.0-15.0) 09/08/17 14:20 INR 1.09 (0.83-1.16) 09/08/17 14:20 - Time Spent With Patient Time Spent with Patient: greater than 35 minutes Time Spent with Patient: Greater than 35 minutes spent on this patients care, greater than 50% of time spent counseling, educating, and coordinating care regarding the above mentioned plan. ICD10 Worksheet Patient Problems: Problems Problem Status Onset Pleural effusion Acute Pneumonia Acute
[2017-09-11] MEDS ORDERED: oxyCODONE CR 30 MG TAB PO SCH (16:00)
[2017-09-11] MEDS: GABAPENTIN 300 MG CAP PO SCH (20:38)
[2017-09-11] MEDS: CETIRIZINE 10 MG TAB PO SCH (20:38)
[2017-09-12] MEDS: PIPERACILLIN/TAZO 4.5 GM/DEX 100 ML IV SCH ×4 (00:17→17:56)
[2017-09-12] MEDS: oxyCODONE CR 30 MG TAB PO SCH ×2 (00:20→17:16)
[2017-09-12] MEDS: IPRATROPIUM/ALBUTEROL 3 ML DEYVIAL IH SCH ×4 (05:25→20:36)
[2017-09-12] MEDS: AZITHROMYCIN 250 MG TAB PO SCH (08:12)
[2017-09-12] MEDS: DEXAMETHASONE 4 MG TAB PO SCH ×3 (08:12→23:45)
[2017-09-12] MEDS: ENOXAPARIN 40 MG/0.4 ML SYR SC SCH (08:13)
--- NOTE | 2017-09-12 09:42 | HOSPPROG ---
Hospitalist Progress Note Assessment/Plan: Patient is a 52-year-old female with a history of breast cancer who was admitted with a pleural effusion as well as pneumonia. Today is my 1st encounter with the patient. Chart reviewed. *Sepsis noted on admission * acute hypoxemic respiratory failure This is secondary to pneumonia and a recurrent pleural effusion Suspect this fluid is probably malignant but this was not sent to lab She is status post thoracentesis on September 09 with 1.5 L of fluid removed Patient has been are further discussing possible placement of pleura x catheter She is requiring 5 L of oxygen and is quite dyspneic * pleural effusion on the same side as her breast ca/ likely malignant * community-acquired pneumonia On azithromycin and Zosyn * elevated troponin Secondary to demand ischemia * breast cancer with newly diagnosed leptomeningeal spread * anemia and thrombocytopenia * pain due to the above cont pain management *dvt prophylaxis: LMWH *Plan: Dr Luciano and myself spent >30 minutes talking with the patient and her . The patient has decided to get a pleura catheter and thoracentesis for comfort. She is feeling extremely weak and feels she is unable to get to the bathroom. A [place] has been ordered if she would like this to help with comfort measures. She will likely go home with hospice/ will continue treatment with the antibiotics. Subjective: Marisela is c/o pain to her hands, feeling very weak, very short of breath. States "I'm tired" Objective: Vital Signs Temp Pulse Resp BP Pulse Ox 36.6 C 125 H 20 151/100 H 93 09/12/17 07:42 09/12/17 07:42 09/12/17 07:42 09/12/17 07:42 09/12/17 07:42 Laboratory Results 09/09/17 05:40 09/09/17 05:40 09/11/17 09/12/17 09/13/17 05:59 05:59 05:59 Intake Total 1200 350 Balance 1200 350 PT 14.0 SEC (12.0-15.0) 09/08/17 14:20 INR 1.09 (0.83-1.16) 09/08/17 14:20 - Physical Exam Constitutional: chronically ill appearing, uncomfortable, other (thin) Eyes: PERRL Ears, Nose, Mouth, Throat: hearing normal Respiratory: other (increase wob with talking) Skin: warm, No normal color (pale) Musculoskeletal: generalized weakness Neurologic: AAOx3 Psychiatric: interacting appropriately, not encephalopathic, thought process linear ICD10 Worksheet Patient Problems: Problems Problem Status Onset Pleural effusion Acute Pneumonia Acute
[2017-09-12] MEDS ORDERED: fentaNYL 100 MCG/2 ML INJ ONE (15:37)
[2017-09-12] MEDS ORDERED: MIDAZOLAM 2 MG/2 ML VIAL ONE (15:38)
[2017-09-12] MEDS ORDERED: LIDOCAINE 1% 300 MG/30 ML SDV ONE (15:55)
[2017-09-12] MEDS ORDERED: FLUMAZENIL 0.5 MG/5 ML MDV IVP PRN (16:32)
[2017-09-12] MEDS ORDERED: fentaNYL 100 MCG/2 ML INJ IVP PRN (16:32)
[2017-09-12] MEDS ORDERED: NALOXONE HCL 0.4 MG/ML INJ IVP PRN (16:32)
[2017-09-12] MEDS ORDERED: MIDAZOLAM 2 MG/2 ML VIAL IVP PRN (16:32)
[2017-09-12] MEDS ORDERED: NS 1,000 ML IV SCH (16:45)
--- NOTE | 2017-09-12 16:48 | PDRADPN ---
Radiology Procedure Note Date of Procedure: 09/12/17 Radiologist: Rashad Antunez Anesthesia: Local (Specify) Pre-op Diagnosis: Rapidly recurrent right pleural effusion, breast CA Post-op Diagnosis: Same Indication: Shortness of breath, tachycardia, hypoxia Procedure: Right pleural [place] drain Finding(s): 16F tunneled, valved multisidehole tube ([place] Drain) placed in right pleural space. 900 ml mildly bloody fluid evacuated. Inf/Abcess present in the surg proc area at time of surgery?: No EBL: Minimal Complications: 0. Patient tolerated procedure well. Drains: Other (16F [place] drain) Specimen(s): 900 ml pleural fluid, discarded.
--- NOTE | 2017-09-12 16:50 | PDPROPOC ---
Sedation Plan of Care Sedation Plan of Care: vital signs stable, mental status noted, patient educated of risks, benefits, alternatives, patient can tolerate sedation ASA Classification: ASA 4 Planned drugs: fentanyl, midazolam Mallampati Score: Class 2 Mallampati Reference Image: Patient passed 3-3-2 rule?: Yes
[2017-09-12] MEDS: LORazepam 0.5 MG TAB PO PRN (18:00)
--- NOTE | 2017-09-12 19:21 | GCON ---
[f rep st] CONSULTATION MEDICAL ONCOLOGY FOLLOWUP CONSULTATION REASON FOR CONSULTATION: Discussion of palliative care options for end-stage adenocarcinoma of the b reast. ASSESSMENT: This 52-year-old white female has a right breast cancer which dates back to 2014. At th at time, she had initially neoadjuvant chemotherapy on CCRP [place] study [id number]. She subsequently had adjuvant therapy with doxorubicin, cyclophosphamide, and paclitaxel in a dose-dense fashion. Un fortunately, at the beginning of 2016, she developed recurrent disease and has been unfortunately ref ractory to therapy. She was placed on palbociclib and fulvestrant followed by capecitabine followed by eribulin and most recently gemcitabine and paclitaxel. The patient's functional status is current ly an ECOG 4. The patient and her who were at the bedside today are very aware that there are essentially n o viable therapeutic options left for her as far as her metastatic disease is concerned. She is curr ently admitted with recurring right pleural effusion and left lung pneumonia. She did have a thorace ntesis of approximately 1.5 L which did briefly make her feel better and improve her functional statu s for approximately 1 day. Currently, her right pleural effusion has recurred again. We had a long discussion today about aims of therapy and palliative care/hospice. At this time, the patient and her are deciding whether or not to put a PleurX catheter in and then look at disc harge to home with hospice. It would also be very reasonable to forego the Pleurx catheter placement and get hospice involved at this time also. I spent approximately 40 minutes in floor time and uoro-an-cpur time with the patient. The majority of time was spent discussing the above issues. Thank you very much for allowing us to continue to participate in this pleasant woman's care during t his hospitalization and beyond. /[id number]/MODL
[2017-09-12 19:29] VITALS: TEMP 98.9
[2017-09-12] MEDS: GABAPENTIN 300 MG CAP PO SCH (19:51)
[2017-09-12] MEDS: CETIRIZINE 10 MG TAB PO SCH (19:51)
[2017-09-12 20:29] VITALS: BP 132/81; RESP 20; O2SAT 50
[2017-09-12 20:31] VITALS: PULSE 133
--- NOTE | 2017-09-12 20:36 | HOSPPROG ---
Hospitalist Progress Note Assessment/Plan: 52 yo f w metastatic breast CA and multilobar pneumonia now w acute resp distress pneumothorax: small and related to procedure today I do not think this is causing her current decompensation, although it may be contributing i discussed chest tube placement with daughter but she has decided against it given end of life and comfort care situation respiratory distress: progressive pneumonia vs intercurrent PE plan of care: intiated comfort care w prn IV morphine 40' crit care time Subjective: stat team called for rsp distress- apparently patient became acutely worse, dyspneic, agonal, unresponsive. start cxr- 10-15% apical pneumothorax on R. daughter at bedside Objective: Vital Signs Temp Pulse Resp BP Pulse Ox 37.2 C 133 H 20 132/81 H 50 L 09/12/17 19:23 09/12/17 20:27 09/12/17 20:27 09/12/17 20:27 09/12/17 20:27 Laboratory Results 09/09/17 05:40 09/09/17 05:40 09/11/17 09/12/17 09/13/17 05:59 05:59 05:59 Intake Total 1200 350 200 Output Total 250 Balance 1200 350 -50 PT 14.0 SEC (12.0-15.0) 09/08/17 14:20 INR 1.09 (0.83-1.16) 09/08/17 14:20 - Physical Exam Constitutional: chronically ill appearing, other (agonal) Cardiovascular: tachycardia Respiratory: other (decreased breath sounds R apex), No no respiratory distress ICD10 Worksheet Patient Problems: Problems Problem Status Onset Pleural effusion Acute Pneumonia Acute
[2017-09-12] MEDS ORDERED: DULoxetine 60 MG CAP PO SCH (21:00)
[2017-09-13] MEDS: IPRATROPIUM/ALBUTEROL 3 ML DEYVIAL IH SCH (05:09)
--- NOTE | 2017-09-13 09:25 | GDS ---
[f rep st] DISCHARGE SUMMARY TITLE: Summary DISCHARGE DIAGNOSES: 1. Sepsis. 2. Acute hypoxemic respiratory failure. 3. Large right-sided pleural effusion. 4. Community-acquired pneumonia. 5. Elevated troponin. 6. Breast cancer with newly diagnosed leptomeningeal spread. 7. Anemia and thrombocytopenia. CONSULTATIONS DURING STAY: Dr. Curly Luciano. Briefly, the patient was a 52-year-old female with metastatic breast cancer. Prior to admission, she had received chemotherapy 2 weeks with Gemzar and Taxol. She presented to the hospital with shortness of breath, and she was brought in by her . She was having ongoing coughing bouts. On admission , it was noted that she had sepsis due to pneumonia. She was treated with fluid boluses. She also was noted to have respiratory failure due to this, as well as having a large right pleural effusion. She was seen and evaluated by Dr. Rashad Antunez and had a thoracentesis on 09/09/17. She had 1.5 L of fluid removed. Throughout her stay, she was treated for pneumonia. She had increased difficulty with shortness of breath, and on 09/13/17, she had a repeat thoracentesis as well as a [place] drain placed in. After the procedure , she continued to be hypoxemic and tachycardic. She was up to 15 L of nonrebreather, and she from complications of pneumonia and hypoxemic respiratory failure. She was seen by the hospitalist team, and it was noted that she had a small pneumothorax that did not likely cause her current decompensation. She was placed on comfort care, and she passed on 09/12/17. /[id number]/MODL MTDD
== END 2017-09-12 21:35 | disposition expired | DRG 871 ==
LOC: EDUNIT# → EDBD → OBSVTOIN 16:03 → F2N 16:42 → F1N 09-10 11:38
PROVIDERS: ADMIT Student in an Organized Health Care Education/Training Program; ATTEND Internal Medicine
PROC: BB4BZZZ Ultrasonography of Pleura (ICD-10-PCS; 2017-09-09)
PROC: 0B9N3ZZ Drainage of Right Pleura, Percutaneous Approach (ICD-10-PCS; 2017-09-09)
PROC: 0B9N30Z Drainage of Right Pleura with Drainage Device, Percutaneous Approach (ICD-10-PCS; principal; 2017-09-12)
DX: A41.89 Other specified sepsis (principal); J18.1 Lobar pneumonia, unspecified organism; J96.01 Acute respiratory failure with hypoxia; J91.0 Malignant pleural effusion; C79.51 Secondary malignant neoplasm of bone; C50.911 Malignant neoplasm of unspecified site of right female breast; C79.32 Secondary malignant neoplasm of cerebral meninges; C78.00 Secondary malignant neoplasm of unspecified lung; E87.2 Acidosis; J95.811 Postprocedural pneumothorax; D63.0 Anemia in neoplastic disease; D69.59 Other secondary thrombocytopenia; Z51.5 Encounter for palliative care
CPT/HCPCS: 87449-90; 92610-GN; 96365; 97161-GP; 97530-GP; C1729; C2617; J0456; J1650; J1956; J2250; J2405; J2543; J3010; Q9967